=== PATIENT | female | born 1965 | race American Indian/Alaskan Native ===

== ENCOUNTER 2017-05-10 10:36 | Emergency (ER) | payer MEDICARE ==
[2017-05-10 10:43] VITALS: BP 188/65
[2017-05-10 11:47] LABS: Basophils % (Auto) 0.3 % (0.0-1.8); Eosinophils % (Auto) 0.3 % (0.0-4.3); Hematocrit 39.8 % (30.3-42.9); Hemoglobin 12.7 gm/dl (10.1-14.3); Lymphocytes # (Auto) 0.9 K/mm3 (1.2-5.4); Lymphocytes % (Auto) 10.4 % (13.4-35.0); Mean Corpuscular HGB Conc 32 % (30-34); Mean Corpuscular Hemoglobin 27 pg (28-32); Mean Corpuscular Volume 85 fl (79-97); Monocytes # (Auto) 0.4 K/mm3 (0.0-0.8); Monocytes % (Auto) 4.3 % (0.0-7.3); Platelet Count 180 K/mm3 (140-440); Red Cell Distribution Width 14.6 % (13.2-15.2)
[2017-05-10 12:06] LABS: BUN/Creatinine Ratio 17; Blood Urea Nitrogen 10 mg/dL (7-17); Calcium 9.1 mg/dL (8.4-10.2); Hemolysis Index 0
[2017-05-10] MEDS ORDERED: XYLOCAINE 1%/ EPI 1:100,000 INFILTRATI ONE (12:06)
[2017-05-10] MEDS ORDERED: XYLOCAINE 1% 20 mL INFILTRATI ONE (12:10)
--- NOTE | 2017-05-10 12:51 | Emergency Department Report ---
HPI - General Chief Complaint: Back Pain/Injury Time Seen by Provider: 05/10/17 12:09 ED Past Medical Hx - Past Medical History Previous Medical History?: Yes Hx Hypertension: Yes Hx Diabetes: Yes - Surgical History Past Surgical History?: Yes Additional Surgical History: x 3, Partial hysterectomy, right inquinal hernia repair - Social History Smoking Status: Current Every Day Smoker Substance Use Type: Alcohol ED Review of Systems ROS: Stated complaint: BACK SPASM Other details as noted in HPI Physical Exam - Physical Exam Vital Signs: Vital Signs 05/10/17 10:39 Temperature 98.8 F Pulse Rate 89 Respiratory 18 Rate Blood Pressure 188/65 O2 Sat by Pulse 100 Oximetry ED Course Vital Signs 05/10/17 10:39 Temperature 98.8 F Pulse Rate 89 Respiratory 18 Rate Blood Pressure 188/65 O2 Sat by Pulse 100 Oximetry - I & D Left Anterior Thigh Type of Procedure: Complex Site: left thigh Blade Size: 11 I & D Procedure: betadine prep, sterile drapes applied, sterile dressing applied , gauze wick placed Progress: Left anterior thigh abscess, I&D without difficulty. 10 mL of lidocaine used for local anesthesia. Patient tolerated procedure well. ED Medical Decision Making - Lab Data Result diagrams: 05/10/17 11:26 05/10/17 11:26 Critical care attestation.: If time is entered above; I have spent that time in minutes in the direct care of this critically ill patient, excluding procedure time. ED Disposition Condition: Stable Referrals: BRANT WHITFIELD MD [Primary Care Provider] - 3-5 Days
[2017-05-10 12:55] LABS: Bacteria,Urine 1+ /HPF (Negative); Bilirubin,Urine NEG (Negative); Blood,Urine NEG (Negative); Color,Urine Yellow (Yellow); Mucus,Urine 1+ /HPF; Urobilinogen,Urine < 2.0 mg/dL (<2.0)
== END 2017-05-10 13:08 ==
LOC: ED 10:36
DX: L02.416 Cutaneous abscess of left lower limb (principal); I10 Essential (primary) hypertension; E11.9 Type 2 diabetes mellitus without complications; F17.200 Nicotine dependence, unspecified, uncomplicated
CPT/HCPCS: 36415; 80048; 81001; 85025; 99283